=== PATIENT | female | born 1985 | race African-American/Black ===

== ENCOUNTER 2021-09-01 14:04 | Outpatient (CLI) | payer OTHER | END 2021-09-01 14:05 | disposition home or self-care (01) | LOC: CSHRAD 14:04 | PROVIDERS: ATTEND Psychiatry & Neurology Neurology | DX: M54.2 Cervicalgia (principal); M47.812 Spondylosis without myelopathy or radiculopathy, cervical region | CPT/HCPCS: 72040 ==